=== PATIENT | female | born 2000 | race Hispanic/Latino ===

== ENCOUNTER 2018-03-11 03:33 | Emergency (ER) | payer OTHER ==
[~2018-03-11] VITALS: Ht 157.5 cm; Wt 57.7 kg
[2018-03-11] MEDS ORDERED: PENICILLIN G BENZATHINE 600000 UNIT/1 ML IM STA (04:40)
[2018-03-11] MEDS ORDERED: AZITHROMYCIN 250 MG TAB PO ONE (04:45)
[2018-03-11] MEDS ORDERED: CEFTRIAXONE SOD 250 MG VIAL IM ONE (04:45)
== END 2018-03-11 05:47 | disposition home or self-care (01) ==
LOC: FSED 03:33
DX: A56.02 Chlamydial vulvovaginitis (principal); A54.02 Gonococcal vulvovaginitis, unspecified; A60.04 Herpesviral vulvovaginitis; A60.1 Herpesviral infection of perianal skin and rectum; A63.0 Anogenital (venereal) warts
CPT/HCPCS: 81003; 81025; 99283; J0561; J0696